=== PATIENT | female | born 1995 | race Caucasian/White ===

== ENCOUNTER 2016-07-19 11:25 | Emergency (ER) | payer OTHER ==
[~2016-07-19 11:25] MED LIST: ACET50TA PO; ADVI200T PO; TYLE167L PO; TYLE325T5 PO; VITAPRTA PO
[2016-07-19] MEDS ORDERED: KETOROLAC 30 MG/ML VIAL (J1885) As Ordered ONE (12:17)
[2016-07-19 12:39] LABS: BASO % 0.1 % (0.0-1.0); EOS # 0.1 K/mm3 (0.0-0.50); LARGE UNSTAINED CELL # 0.1 K/mm3 (0.0-0.4); LARGE UNSTAINED CELL % 1.2 % (0.0-4.0); LYMPH # 0.8 K/mm3 (1.5-6.5); LYMPH % 11.4 % (24.0-44.0); MEAN CORPUSCULAR HEMOGLOBIN 29.6 pg (27.0-33.0); MEAN CORPUSCULAR HGB CONC 32.6 g/dl (32.0-36.5); MEAN CORPUSCULAR VOLUME 90.8 fl (80.0-96.0); MONO # 0.3 K/mm3 (0.0-0.8); MONO % 3.9 % (0.0-5.0); NEUTROPHILS # 5.5 K/mm3 (1.8-7.7); NEUTROPHILS % 82.4 % (36.0-66.0); PLATELET COUNT, AUTOMATED 150 k/mm3 (150-450); RED CELL DISTRIBUTION WIDTH 12.4 % (11.5-14.5); WHITE BLOOD COUNT 6.7 K/mm3 (4.0-10.0)
[2016-07-19 12:42] LABS: ALBUMIN 4.4 GM/DL (3.2-5.2); ALBUMIN/GLOBULIN RATIO 1.33 (1.00-1.93); ALKALINE PHOSPHATASE 135 U/L (45-117); ALT/SGPT 19 U/L (12-78); AMYLASE 56 U/L (25-115); ANION GAP 9 MEQ/L (8-16); AST/SGOT 13 U/L (15-37); BILIRUBIN,DIRECT 0.3 MG/DL (0.0-0.2); BILIRUBIN,TOTAL 1.1 MG/DL (0.2-1.0); BLOOD UREA NITROGEN 15 MG/DL (7-18); CALCIUM LEVEL 8.9 MG/DL (8.5-10.1); CARBON DIOXIDE LEVEL 28 MEQ/L (21-32); CHLORIDE LEVEL 106 MEQ/L (98-107); CREATININE FOR GFR 0.55 MG/DL (0.55-1.02); GLOMERULAR FILTRATION RATE > 60.0 (>60); GLUCOSE, FASTING 65 MG/DL (70-105); POTASSIUM SERUM 3.6 MEQ/L (3.5-5.1); SODIUM LEVEL 143 MEQ/L (136-145); TOTAL PROTEIN 7.7 GM/DL (6.4-8.2)
--- NOTE | 2016-07-19 13:57 | EDDOCDS ---
Nurse's Notes [facility] Name: Seble Pettit Age: 21 yrs Sex: Female : 1995 Arrival Date: 07/19/2016 Time: 11:25 Bed I4 / M4 Private MD: [place] [facility] [place]: Lower abdominal pain, unspecified-RLQ PAIN Presentation: 07/19 11:27 Presenting complaint: Patient states: "I'm having a lot of pain in my right side. It's jc4 been going on since 6 today. I started to get up and I started blacking out and I am nauseous". Adult Sepsis Screening: The patient does not have new or worsening altered mentation. Patient's respiratory rate is less than 22. Systolic blood pressure is greater than 100. Patient has a qSOFA score of 0- Negative Sepsis Screen. Suicide/Homicide risk assessment- the patient denies having any suicidal and/or homicidal ideations and does not present with any other emotional, behavioral or mental health complaints. Status: The patient is a dependent. Transition of care: patient was not received from another setting of care. 11:27 Acuity: FRANCISCO Level 3 jc4 11:27 Method Of Arrival: Walkin/Carried/Asstd jc4 Triage Assessment: 11:29 General: Appears in no apparent distress. Pain: Pain currently is 5 out of 10 on a pain jc4 scale. HIV screening NA for this visit Offered previously. GI: Reports lower abdominal pain, nausea, normal bowel habits, dry heaves. 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 Vitamin Oral tab 1 tab once daily (Last dose: 07/18/2016) 2. Tylenol 325 mg Oral tab 1 tab every 4 hours as needed (Last dose: 07/19/2016 09:00) - PMHx: none; - PSHx: none; - Social history: Smoking status: Patient uses tobacco products, light tobacco smoker. No barriers to communication noted, The patient speaks fluent Turkmen. - Family history: Not pertinent. - : The pt / caregiver states he / she is not on anticoagulants. Home medication list is obtained from the patient. - Exposure Risk Screening:: None identified. Screenin:21 Screening information is obtained from the patient. Fall risk: No risks identified. kr3 Assistance ADL's: requires no assistance with activities of daily living. Abuse/DV Screen: The patient / caregiver reports he/she is: not in a situation that causes fear, pain or injury. Nutritional screening: No deficits noted. Advance Directives: Currently, there is no health care proxy. home support is adequate. Assessment: 12:06 General: Patient unable to void prior to moving to [facility].. js13 12:20 Reassessment: Patient appears in no apparent distress at this time. Pain: Location: kr3 right lower quadrant Pain currently is 5 out of 10 on a pain scale. Neurological: Level of Consciousness is awake, alert. Respiratory: Respiratory effort is even, unlabored, Breath sounds are clear bilaterally. GI: Abdomen is flat, Bowel sounds present X 4 quads. Abd is soft X 4 quads Abd is non tender X 4 quads. Derm: Skin is normal. 13:55 Reassessment: Patient appears in no apparent distress at this time. Pain: Location: kr3 right lower quadrant Pain currently is 2 out of 10 on a pain scale. Respiratory: Respiratory effort is even, unlabored. Derm: Skin is normal. Vital Signs: 11:27 BP 104 / 54; Pulse 75; Resp 18; Temp 97.6; Pulse Ox 100% ; Weight 51.26 kg; Height 5 elp ft. 2 in. (157.48 cm); Pain 5/10; 13:44 BP 97 / 57; Pulse 79; Resp 18; Temp 97.4; Pulse Ox 99% ; Pain 0/10; jam1 13:55 Pain 2/10; kr3 11:27 Body Mass Index 20.67 (51.26 kg, 157.48 cm) [place] Vitals: 11:27 Log In Time: July 19, 2016 at 11:25. el ED Course: 11:26 Patient visited by Gogo Meyer PCA. elp 11:26 MOSHE Pickard is Private Physician. elp 11:26 Patient moved to Waiting elp 11:26 Patient moved to Pre RCE elp 11:28 Patient visited by Gogo Meyre PCA. elp 11:29 Triage Initiated jc4 11:52 Patient moved to Triage 1 dls 11:53 [facility] dt4 11:53 Martha Dela Cruz MD is Attending Physician. dt4 11:53 Patient visited by Jenna Carbone PA-C. dt4 12:03 Patient moved to I / js13 12:09 [facility] Payment Agreement was scanned into [email or web address] and attached to record. dm19 12:19 CRP Sent. kr3 12:19 Amylase Sent. kr3 12:19 Basic Metabolic Profile Sent. kr3 12:19 CBC with Diff Sent. kr3 12:19 Lipase Sent. kr3 12:19 Liver Profile Sent. kr3 12:20 Inserted saline lock: 20 gauge in right antecubital area and blood collected. The kr3 patient tolerated the procedure well. 12:21 The patient / caregiver is instructed regarding the plan of care and ED course. Patient kr3 has correct armband on for positive identification. Placed in gown. Bed in low position. Call light in reach. Side rails up X 1. 12:21 Patient moved to Ultrasound br3 12:45 Patient moved to I / br3 12:59 Patient visited by Brenda Barrios RN. jo3 13:03 Pt greeted and oriented to ED. Patient advised of names of staff involved in care, jam1 location of call [place], wait times and NPO status. Patient has correct armband on for positive identification. Placed in gown. Bed in low position. Call light in reach. Side rails up X 1. Door closed. 13:55 Discontinued lock intact, bleeding controlled, pressure dressing applied, No kr3 redness/swelling at site. No procedures done that require assistance. Administered Medications: 12:22 Drug: NS 0.9% 1000 ml [sodium chloride 0.9 % intravenous solution] Route: IV; Rate: jo3 bolus; Site: right antecubital; 13:55 Follow up: IV Status: Completed infusion; IV Intake: 1000ml kr3 12:22 Drug: ketorolac 15 mg [ketorolac 30 mg/mL (1 mL) injection solution (0.5 mL)] Route: jo3 IVP; Site: right antecubital; 13:55 Follow up: Pain 2/10 Adult kr3 Point of Care Testing: Urine : 12:57 hCG Reading: Negative; Control Reading: Positive; jo3 Ranges: Intake: 13:55 IV: 1000.00ml; Total: 1000.00ml. kr3 Order Results: Lab Order: Urinalysis; SPEC'M 07/19/16 12:47 Test: APPEARANCE, URINE; Value: HAZY; Range: CLEAR; Status: F Test: COLOR, URINE; Value: ERVIN; Range: YELLOW; Status: F Test: PH,URINE; Value: 6.0; Range: 5.0-9.0; Units: UNITS; Status: F Test: SPECIFIC GRAVITY URINE AUTO; Value: 1.031; Range: 1.002-1.035; Status: F Test: PROTEIN, URINE AUTO; Value: 1+; Range: NEGATIVE; Abnormal: Above high normal; Units: mg/dL; Status: F Test: GLUCOSE, URINE (UA) AUTO; Value: NEGATIVE; Range: NEGATIVE; Units: mg/dL; Status: F Test: KETONE, URINE AUTO; Value: TRACE; Range: NEGATIVE; Abnormal: Above high normal; Units: mg/dL; Status: F Test: UROBILINOGEN, URINE AUTO; Value: 0.2; Range: 0.0-2.0; Units: mg/dL; Status: F Test: BILIRUBIN, URINE AUTO; Value: NEGATIVE; Range: NEGATIVE; Status: F Test: NITRITE, URINE AUTO; Value: NEGATIVE; Range: NEGATIVE; Status: F Test: LEUKOCYTE ESTERASE, URINE AUTO; Value: NEGATIVE; Range: NEGATIVE; Status: F Test: BLOOD, URINE BLOOD; Value: NEGATIVE; Range: NEGATIVE; Status: F Test: WBC, URINE AUTO; Value: 1; Range: 0-3; Units: /HPF; Status: F Test: RBC, URINE AUTO; Value: 3; Range: 0-3; Units: /HPF; Status: F Test: BACTERIA, URINE AUTO; Value: NEGATIVE; Range: NEGATIVE; Status: F Test: SQUAMOUS EPITHELIAL CELL UR AU; Value: 2; Range: 0-6; Units: /HPF; Status: F Test: MUCUS, URINE; Value: MODERATE; Range: NEGATIVE; Status: F Test: HYALINE CAST, URINE AUTO; Value: 0; Range: 0-1; Units: /LPF; Status: F Lab Order: Amylase; SPEC'M 07/19/16 12:17 Test: AMYLASE; Value: 56; Range: 25-115; Units: U/L; Status: F Lab Order: Basic Metabolic Profile; SPEC'M 07/19/16 12:17 Test: GLUCOSE, FASTING; Value: 65; Range: 70-105; Abnormal: Below low normal; Units: MG/DL; Status: F Test: BLOOD UREA NITROGEN; Value: 15; Range: 7-18; Units: MG/DL; Status: F Test: CREATININE FOR GFR; Value: 0.55; Range: 0.55-1.02; Units: MG/DL; Status: F Test: GLOMERULAR FILTRATION RATE; Value: > 60.0; Range: >60; Status: F Test: SODIUM LEVEL; Value: 143; Range: 136-145; Units: MEQ/L; Status: F Test: POTASSIUM SERUM; Value: 3.6; Range: 3.5-5.1; Units: MEQ/L; Status: F Test: CHLORIDE LEVEL; Value: 106; Range: 98-107; Units: MEQ/L; Status: F Test: CARBON DIOXIDE LEVEL; Value: 28; Range: 21-32; Units: MEQ/L; Status: F Test: ANION GAP; Value: 9; Range: 8-16; Units: MEQ/L; Status: F Test: CALCIUM LEVEL; Value: 8.9; Range: 8.5-10.1; Units: MG/DL; Status: F Test Note: ; Units are mL/min/1.73 m2 Chronic Kidney Disease Staging per NKF: Stage I & II GFR >=60 Normal to Mildly Decreased Stage III GFR 30-59 Moderately Decreased Stage IV GFR 15-29 Severely Decreased Stage V GFR <15 Very Little GFR Left ESRD GFR <15 on HEALTH ADMINISTRATION TEACHER Lab Order: CBC with Diff; SPEC'M 07/19/16 12:17 Test: WHITE BLOOD COUNT; Value: 6.7; Range: 4.0-10.0; Units: K/mm3; Status: F Test: RED BLOOD COUNT; Value: 4.54; Range: 4.00-5.40; Units: M/mm3; Status: F Test: HEMOGLOBIN; Value: 13.4; Range: 12.0-16.0; Units: g/dl; Status: F Test: HEMATOCRIT; Value: 41.2; Range: 36.0-47.0; Units: %; Status: F Test: MEAN CORPUSCULAR VOLUME; Value: 90.8; Range: 80.0-96.0; Units: fl; Status: F Test: MEAN CORPUSCULAR HEMOGLOBIN; Value: 29.6; Range: 27.0-33.0; Units: pg; Status: F Test: MEAN CORPUSCULAR HGB CONC; Value: 32.6; Range: 32.0-36.5; Units: g/dl; Status: F Test: RED CELL DISTRIBUTION WIDTH; Value: 12.4; Range: 11.5-14.5; Units: %; Status: F Test: PLATELET COUNT, AUTOMATED; Value: 150; Range: 150-450; Units: k/mm3; Status: F Test: NEUTROPHILS %; Value: 82.4; Range: 36.0-66.0; Abnormal: Above high normal; Units: %; Status: F Test: LYMPH %; Value: 11.4; Range: 24.0-44.0; Abnormal: Below low normal; Units: %; Status: F Test: MONO %; Value: 3.9; Range: 0.0-5.0; Units: %; Status: F Test: EOS %; Value: 1.0; Range: 0.0-3.0; Units: %; Status: F Test: BASO %; Value: 0.1; Range: 0.0-1.0; Units: %; Status: F Test: LARGE UNSTAINED CELL %; Value: 1.2; Range: 0.0-4.0; Units: %; Status: F Test: NEUTROPHILS #; Value: 5.5; Range: 1.8-7.7; Units: K/mm3; Status: F Test: LYMPH #; Value: 0.8; Range: 1.5-6.5; Abnormal: Below low normal; Units: K/mm3; Status: F Test: MONO #; Value: 0.3; Range: 0.0-0.8; Units: K/mm3; Status: F Test: EOS #; Value: 0.1; Range: 0.0-0.50; Units: K/mm3; Status: F Test: BASO #; Value: 0.0; Range: 0.0-0.2; Units: K/mm3; Status: F Test: LARGE UNSTAINED CELL #; Value: 0.1; Range: 0.0-0.4; Units: K/mm3; Status: F Lab Order: Lipase; SPEC'M 07/19/16 12:17 Test: LIPASE; Value: 71; Range: 73-393; Abnormal: Below low normal; Units: U/L; Status: F Lab Order: Liver Profile; SPEC'M 07/19/16 12:17 Test: AST/SGOT; Value: 13; Range: 15-37; Abnormal: Below low normal; Units: U/L; Status: F Test: ALT/SGPT; Value: 19; Range: 12-78; Units: U/L; Status: F Test: ALKALINE PHOSPHATASE; Value: 135; Range: 45-117; Abnormal: Above high normal; Units: U/L; Status: F Test: BILIRUBIN,TOTAL; Value: 1.1; Range: 0.2-1.0; Abnormal: Above high normal; Units: MG/DL; Status: F Test: BILIRUBIN,DIRECT; Value: 0.3; Range: 0.0-0.2; Abnormal: Above high normal; Units: MG/DL; Status: F Test: TOTAL PROTEIN; Value: 7.7; Range: 6.4-8.2; Units: GM/DL; Status: F Test: ALBUMIN; Value: 4.4; Range: 3.2-5.2; Units: GM/DL; Status: F Test: ALBUMIN/GLOBULIN RATIO; Value: 1.33; Range: 1.00-1.93; Status: F Lab Order: CRP; SPEC'M 07/19/16 12:17 Test: C REACTIVE PROTEIN QUANTITATIV; Value: < 0.30; Range: 0.00-0.30; Units: MG/DL; Status: F Outcome: 13:42 Discharge ordered by Provider. dt4 13:55 Discharge Assessment: patient administered narcotics - no. The following High Risk kr3 Discharge criteria are identified: None. Discharged to home ambulatory. Condition: stable. Discharge instructions given to patient, Instructed on discharge instructions, follow up and referral plans. Demonstrated understanding of instructions, Pt was receptive of discharge instructions/ teaching. CT Study completed. Ultrasound Study completed. Property sent home with patient. 13:56 Patient left the ED. kr3 Signatures: Saba Dumont RN RN Sarah Camacho, ROSALIE COMMUNICATIONS EDITOR Farzana Faulkner RN RN kr3 Brenda Barrios,RN RN jo3 Deann Lynn3 Brenda Alexandra, RN RN jc4 Brenda Mejia,RN RN js13 Gogo Meyer, Jenna Lackey, PA-C PA-C dt4 Jenna Guillermo dm19 MTDD
--- NOTE | 2016-07-19 13:57 | EDDOCDS ---
Physician Documentation [facility] Name: Seble Pettit Age: 21 yrs Sex: Female : 1995 Arrival Date: 07/19/2016 Time: 11:25 Bed I4 / M4 Private MD: Melly [facility] [place] Disposition: 07/19/16 13:42 Discharged to Home/Self Care. Impression: Lower abdominal pain, unspecified - RLQ PAIN. - Condition is Stable. - Discharge Instructions: Abdominal Pain, Women. - Medication Reconciliation, Local Pharmacy Hours form. - Follow up: Emergency Department; When: As needed; Reason: Worsening of conditions. Follow up: Private Physician; When: 2 - 3 days; Reason: Wound/Symptom Recheck, Recheck today's complaints, Continuance of care. - Problem is new. - Symptoms are unchanged. Historical: - Allergies: no known allergies; - Home Meds: 1. Vitamin Oral tab 1 tab once daily (Last dose: 07/18/2016) 2. Tylenol 325 mg Oral tab 1 tab every 4 hours as needed (Last dose: 07/19/2016 09:00) - PMHx: none; - PSHx: none; - Social history: Smoking status: Patient uses tobacco products, light tobacco smoker. No barriers to communication noted, The patient speaks fluent Hungarian. - Family history: Not pertinent. - : The pt / caregiver states he / she is not on anticoagulants. Home medication list is obtained from the patient. - Exposure Risk Screening:: None identified. 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 2 in. (157.48 cm); Pain 5/10; 13:44 BP 97 / 57; Pulse 79; Resp 18; Temp 97.4; Pulse Ox 99% ; Pain 0/10; jam1 13:55 Pain 2/10; kr3 11:27 Body Mass Index 20.67 (51.26 kg, 157.48 cm) elp MDM: 11:52 UCG by Nursing ordered. dt4 11:54 Urinalysis Ordered. EDMS 11:54 Urine Culture Ordered. EDMS 12:08 NS 0.9% 1000 ml IV at bolus once ordered. dt4 12:08 IV Saline Lock ordered. dt4 12:08 Undress patient appropriately for examination ordered. dt4 12:08 ketorolac 15 mg IVP once ordered. dt4 12:09 [facility] Payment Agreement was scanned into [email or web address] and attached to record. dm19 12:09 -US Pelvic Non-Ob Complete Ordered. EDMS 12:09 Financial registration complete. dm19 12:10 Amylase Ordered. EDMS 12:10 Basic Metabolic Profile Ordered. EDMS 12:10 CBC with Diff Ordered. EDMS 12:10 Lipase Ordered. EDMS 12:10 Liver Profile Ordered. EDMS 12:10 CRP Ordered. EDMS 12:10 CT ABD & PELVIS: No Contrast: PT BREAST-FEEDING Ordered. EDMS 12:10 NOTHING BY MOUTH+DIET ordered. EDMS 12:10 DUPLEX SCAN LIMITED (DOPPLER)+US Ordered. EDMS 12:46 Transvaginal NON- US Ordered. EDMS 13:03 3D RECONS Ordered. EDMS Point of Care Testing: Urine : 12:57 hCG Reading: Negative; Control Reading: Positive; jo3 Ranges: Administered Medications: 12:22 Drug: NS 0.9% 1000 ml [sodium chloride 0.9 % intravenous solution] Route: IV; Rate: jo3 bolus; Site: right antecubital; 13:55 Follow up: IV Status: Completed infusion; IV Intake: 1000ml kr3 12:22 Drug: ketorolac 15 mg [ketorolac 30 mg/mL (1 mL) injection solution (0.5 mL)] Route: jo3 IVP; Site: right antecubital; 13:55 Follow up: Pain 2/10 Adult kr3 Signatures: Dispatcher [employer] EDMS Farzana Oconnor RN RN kr3 Brenda Alexandra RN RN jc4 Tschudi, Diane, PA-C PA-C dt4 Jenna Guillermo dm19 Brenda Barrios RN jo3 The chart was reviewed and I authenticate all verbal orders and agree with the evaluation and treatment provided.Attachments: 12:09 [facility] Payment Agreement dm19 MTDD
--- NOTE | 2016-07-19 15:53 | REP ---
Pelvic sonography: History: Right lower quadrant pain. Question appendicitis versus ovarian torsion. Findings: Transabdominal and transvaginal scanning are performed. An anteverted normal appearing uterus is seen measuring 7.2 x 3.2 x 4.9 cm. Endometrial echo is 0.3 cm thick. An IUD is seen in good position in the endometrium. No focal uterine mass is seen. The ovaries are normal bilaterally. Right ovary measures 3.5 x 2.9 x 1.9 cm. Left ovarian dimensions are 2.9 x 1.9 x 1.8 cm. Ovarian Doppler resistive indices are normal bilaterally at 0.52 on the right and 0.60 on the left. Visualized bladder galarza are smooth. Impression: Normal pelvic sonography. IUD in place. Normal ovaries with normal Doppler flow. Signed by Evert Smith MD 07/19/2016 04:00 P
--- NOTE | 2016-07-19 16:28 | REP ---
CT study of the abdomen and pelvis without IV or oral contrast: History: Appendicitis. CT findings: Preliminary digital pilates instructor radiograph demonstrates a normal bowel gas pattern. An IUD is seen in place in the central pelvis. Axial CT images show that the lung bases are clear. The liver and spleen are normal in size homogeneous in texture on noncontrast study. No adrenal lesion is seen. Kidneys are morphologically intact. No intrarenal calculus or hydronephrosis is seen. No pancreatic abnormality is seen. Gallbladder is unremarkable. A normal appendix is seen posterior to the cecum in the right mid pelvis. There is no CT evidence of appendicitis. There is moderate stool throughout the colon. There is no evidence of an intra-abdominal mass, free air or free fluid. No abdominal wall defect is seen. No bony destructive lesion is observed. Impression: IUD noted in the uterus. Normal appendix seen. Moderate colonic stool. Otherwise negative CT study abdomen and pelvis without contrast. Signed by Evert Smith MD 07/19/2016 04:39 P
--- NOTE | 2016-07-22 11:08 | EDDOCDS ---
Physician Documentation [facility] Name: Seble Pettit Age: 21 yrs Sex: Female : 1995 Arrival Date: 07/19/2016 Time: 11:25 Bed I4 / M4 Private MD: Melly [facility] [place]position: 07/19/16 13:42 Discharged to Home/Self Care. Impression: Lower abdominal pain, unspecified - RLQ PAIN. - Condition is Stable. - Discharge Instructions: Abdominal Pain, Women. - Medication Reconciliation, Local Pharmacy Hours form. - Follow up: Emergency Department; When: As needed; Reason: Worsening of conditions. Follow up: Private Physician; When: 2 - 3 days; Reason: Wound/Symptom Recheck, Recheck today's complaints, Continuance of care. - Problem is new. - Symptoms are unchanged. Historical: - Allergies: no known allergies; - Home Meds: 1. Vitamin Oral tab 1 tab once daily (Last dose: 07/18/2016) 2. Tylenol 325 mg Oral tab 1 tab every 4 hours as needed (Last dose: 07/19/2016 09:00) - PMHx: none; - PSHx: none; - Social history: Smoking status: Patient uses tobacco products, light tobacco smoker. No barriers to communication noted, The patient speaks fluent Japanese. - Family history: Not pertinent. - : The pt / caregiver states he / she is not on anticoagulants. Home medication list is obtained from the patient. - Exposure Risk Screening:: None identified. 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 2 in. (157.48 cm); Pain 5/10; 13:44 BP 97 / 57; Pulse 79; Resp 18; Temp 97.4; Pulse Ox 99% ; Pain 0/10; jam1 13:55 Pain 2/10; kr3 11:27 Body Mass Index 20.67 (51.26 kg, 157.48 cm) elp MDM: 11:52 UCG by Nursing ordered. dt4 11:54 Urinalysis Ordered. EDMS 11:54 Urine Culture Ordered. EDMS 12:08 NS 0.9% 1000 ml IV at bolus once ordered. dt4 12:08 IV Saline Lock ordered. dt4 12:08 Undress patient appropriately for examination ordered. dt4 12:08 ketorolac 15 mg IVP once ordered. dt4 12:09 [facility] Payment Agreement was scanned into [employer] and attached to record. dm19 12:09 -US Pelvic Non-Ob Complete Ordered. EDMS 12:09 Financial registration complete. dm19 12:10 Amylase Ordered. EDMS 12:10 Basic Metabolic Profile Ordered. EDMS 12:10 CBC with Diff Ordered. EDMS 12:10 Lipase Ordered. EDMS 12:10 Liver Profile Ordered. EDMS 12:10 CRP Ordered. EDMS 12:10 CT ABD & PELVIS: No Contrast: PT BREAST-FEEDING Ordered. EDMS 12:10 NOTHING BY MOUTH+DIET ordered. EDMS 12:10 DUPLEX SCAN LIMITED (DOPPLER)+US Ordered. EDMS 12:46 Transvaginal NON- US Ordered. EDMS 13:03 3D RECONS Ordered. EDMS 15:39 T-Sheet-- Draft Copy was scanned into [employer] and attached to record. klr 01 09:28 Radiology Report was scanned into [employer] and attached to record. Point of Care Testing: Urine : 07/19 12:57 hCG Reading: Negative; Control Reading: Positive; jo3 Ranges: Administered Medications: 12:22 Drug: NS 0.9% 1000 ml [sodium chloride 0.9 % intravenous solution] Route: IV; Rate: jo3 bolus; Site: right antecubital; 13:55 Follow up: IV Status: Completed infusion; IV Intake: 1000ml kr3 12:22 Drug: ketorolac 15 mg [ketorolac 30 mg/mL (1 mL) injection solution (0.5 mL)] Route: jo3 IVP; Site: right antecubital; 13:55 Follow up: Pain 08/22 Adult kr3 Signatures: Dispatcher [employer] EDMS Nicki Sheffield, Farzana Bah RN RN kr3 Brenda Alexandra RN RN [email or web address] Jenna Carbone, ISABEL PA-C dt4 Maureen Mascorro klr Jenna Guillermo dm19 [place], Brenda RN jo3 The chart was reviewed and I authenticate all verbal orders and agree with the evaluation and treatment provided.Attachments: 12:09 [facility] Payment Agreement dm19 15:39 T-Sheet-- Draft Copy klr Chart Complete MTDD
--- NOTE | 2016-07-22 11:08 | EDDOCDS ---
Nurse's Notes [facility] Name: Seble Pettit Age: 21 yrs Sex: Female : 1995 Arrival Date: 07/19/2016 Time: 11:25 Bed I4 / M4 Private MD: Melly [facility] [place] Diagnosis: Lower abdominal pain, unspecified-RLQ PAIN Presentation: 07/19 11:27 Presenting complaint: Patient states: "I'm having a lot of pain in my right side. It's jc4 been going on since 6 today. I started to get up and I started blacking out and I am nauseous". Adult Sepsis Screening: The patient does not have new or worsening altered mentation. Patient's respiratory rate is less than 22. Systolic blood pressure is greater than 100. Patient has a qSOFA score of 0- Negative Sepsis Screen. Suicide/Homicide risk assessment- the patient denies having any suicidal and/or homicidal ideations and does not present with any other emotional, behavioral or mental health complaints. Status: The patient is a dependent. Transition of care: patient was not received from another setting of care. 11:27 Acuity: FRANCISCO Level 3 jc4 11:27 Method Of Arrival: Walkin/Carried/Asstd jc4 Triage Assessment: 11:29 General: Appears in no apparent distress. Pain: Pain currently is 5 out of 10 on a pain jc4 scale. HIV screening NA for this visit Offered previously. GI: Reports lower abdominal pain, nausea, normal bowel habits, dry heaves. BLASTER HELPER: 11:29 LMP N/A - Mirena jc4 Historical: - Allergies: no known allergies; - Home Meds: 1. Vitamin Oral tab 1 tab once daily (Last dose: 07/18/2016) 2. Tylenol 325 mg Oral tab 1 tab every 4 hours as needed (Last dose: 07/19/2016 09:00) - PMHx: none; - PSHx: none; - Social history: Smoking status: Patient uses tobacco products, light tobacco smoker. No barriers to communication noted, The patient speaks fluent Sami. - Family history: Not pertinent. - : The pt / caregiver states he / she is not on anticoagulants. Home medication list is obtained from the patient. - Exposure Risk Screening:: None identified. Screenin:21 Screening information is obtained from the patient. Fall risk: No risks identified. kr3 Assistance ADL's: requires no assistance with activities of daily living. Abuse/DV Screen: The patient / caregiver reports he/she is: not in a situation that causes fear, pain or injury. Nutritional screening: No deficits noted. Advance Directives: Currently, there is no health care proxy. home support is adequate. Assessment: 12:06 General: Patient unable to void prior to moving to [facility].. js13 12:20 Reassessment: Patient appears in no apparent distress at this time. Pain: Location: kr3 right lower quadrant Pain currently is 5 out of 10 on a pain scale. Neurological: Level of Consciousness is awake, alert. Respiratory: Respiratory effort is even, unlabored, Breath sounds are clear bilaterally. GI: Abdomen is flat, Bowel sounds present X 4 quads. Abd is soft X 4 quads Abd is non tender X 4 quads. Derm: Skin is normal. 13:55 Reassessment: Patient appears in no apparent distress at this time. Pain: Location: kr3 right lower quadrant Pain currently is 2 out of 10 on a pain scale. Respiratory: Respiratory effort is even, unlabored. Derm: Skin is normal. Vital Signs: 11:27 BP 104 / 54; Pulse 75; Resp 18; Temp 97.6; Pulse Ox 100% ; Weight 51.26 kg; Height 5 elp ft. 2 in. (157.48 cm); Pain 5/10; 13:44 BP 97 / 57; Pulse 79; Resp 18; Temp 97.4; Pulse Ox 99% ; Pain 0/10; jam1 13:55 Pain 2/10; kr3 11:27 Body Mass Index 20.67 (51.26 kg, 157.48 cm) [facility] Vitals: 11:27 Log In Time: July 19, 2016 at 11:25. el ED Course: 11:26 Patient visited by Gogo Meyer PCA. elp 11:26 MOSHE Pickard is Private Physician. elp 11:26 Patient moved to Waiting elp 11:26 Patient moved to Pre RCE elp 11:28 Patient visited by Gogo Meyer PCA. elp 11:29 Triage Initiated jc4 11:52 Patient moved to Triage 1 dls 11:53 [facility] dt4 11:53 Martha Dela Cruz MD is Attending Physician. dt4 11:53 Patient visited by Jenna Carbone PA-C. dt4 12:03 Patient moved to I / js13 12:09 [facility] Payment Agreement was scanned into Kleer and attached to record. dm19 12:19 CRP Sent. kr3 12:19 Amylase Sent. kr3 12:19 Basic Metabolic Profile Sent. kr3 12:19 CBC with Diff Sent. kr3 12:19 Lipase Sent. kr3 12:19 Liver Profile Sent. kr3 12:20 Inserted saline lock: 20 gauge in right antecubital area and blood collected. The kr3 patient tolerated the procedure well. 12:21 The patient / caregiver is instructed regarding the plan of care and ED course. Patient krMartín has correct armband on for positive identification. Placed in gown. Bed in low position. Call light in reach. Side rails up X 1. 12:21 Patient moved to Ultrasound br3 12:45 Patient moved to I4 / br3 12:59 Patient visited by Brenda Barrios RN. jo3 13:03 Pt greeted and oriented to ED. Patient advised of names of staff involved in care, jam1 location of call [place], wait times and NPO status. Patient has correct armband on for positive identification. Placed in gown. Bed in low position. Call light in reach. Side rails up X 1. Door closed. 13:55 Discontinued lock intact, bleeding controlled, pressure dressing applied, No kr3 redness/swelling at site. No procedures done that require assistance. 15:39 T-Sheet-- Draft Copy was scanned into Kleer and attached to record. klr 16:28 -US Pelvic Non-Ob Complete Returned. EDMS 16:29 DUPLEX SCAN LIMITED (DOPPLER)+US Returned. EDMS 16:29 Transvaginal NON- US Returned. EDMS 16:29 CT ABD & PELVIS: No Contrast: PT BREAST-FEEDING Returned. EDMS 07/20 09:28 Radiology Report was scanned into Kleer and attached to record. gb Administered Medications: 07/19 12:22 Drug: NS 0.9% 1000 ml [sodium chloride 0.9 % intravenous solution] Route: IV; Rate: jo3 bolus; Site: right antecubital; 13:55 Follow up: IV Status: Completed infusion; IV Intake: 1000ml kr3 12:22 Drug: ketorolac 15 mg [ketorolac 30 mg/mL (1 mL) injection solution (0.5 mL)] Route: jo3 IVP; Site: right antecubital; 13:55 Follow up: Pain 2/10 Adult kr3 Point of Care Testing: Urine : 12:57 hCG Reading: Negative; Control Reading: Positive; jo3 Ranges: Intake: 13:55 IV: 1000.00ml; Total: 1000.00ml. kr3 Order Results: Lab Order: Urinalysis; SPEC'M 07/19/16 12:47 Test: APPEARANCE, URINE; Value: HAZY; Range: CLEAR; Status: F Test: COLOR, URINE; Value: ERVIN; Range: YELLOW; Status: F Test: PH,URINE; Value: 6.0; Range: 5.0-9.0; Units: UNITS; Status: F Test: SPECIFIC GRAVITY URINE AUTO; Value: 1.031; Range: 1.002-1.035; Status: F Test: PROTEIN, URINE AUTO; Value: 1+; Range: NEGATIVE; Abnormal: Above high normal; Units: mg/dL; Status: F Test: GLUCOSE, URINE (UA) AUTO; Value: NEGATIVE; Range: NEGATIVE; Units: mg/dL; Status: F Test: KETONE, URINE AUTO; Value: TRACE; Range: NEGATIVE; Abnormal: Above high normal; Units: mg/dL; Status: F Test: UROBILINOGEN, URINE AUTO; Value: 0.2; Range: 0.0-2.0; Units: mg/dL; Status: F Test: BILIRUBIN, URINE AUTO; Value: NEGATIVE; Range: NEGATIVE; Status: F Test: NITRITE, URINE AUTO; Value: NEGATIVE; Range: NEGATIVE; Status: F Test: LEUKOCYTE ESTERASE, URINE AUTO; Value: NEGATIVE; Range: NEGATIVE; Status: F Test: BLOOD, URINE BLOOD; Value: NEGATIVE; Range: NEGATIVE; Status: F Test: WBC, URINE AUTO; Value: 1; Range: 0-3; Units: /HPF; Status: F Test: RBC, URINE AUTO; Value: 3; Range: 0-3; Units: /HPF; Status: F Test: BACTERIA, URINE AUTO; Value: NEGATIVE; Range: NEGATIVE; Status: F Test: SQUAMOUS EPITHELIAL CELL UR AU; Value: 2; Range: 0-6; Units: /HPF; Status: F Test: MUCUS, URINE; Value: MODERATE; Range: NEGATIVE; Status: F Test: HYALINE CAST, URINE AUTO; Value: 0; Range: 0-1; Units: /LPF; Status: F Lab Order: Urine Culture; SPEC'M 07/19/16 12:47 Test: URINE CULTURE; Value: URINE CULTURE RESULT NO GROWTH CLINICAL SIGNIFICANCE 1 ORGANISM; Status: F Lab Order: Amylase; SPEC'07/19/16 12:17 Test: AMYLASE; Value: 56; Range: 25-115; Units: U/L; Status: F Lab Order: Basic Metabolic Profile; SPEC07/19/16 12:17 Test: GLUCOSE, FASTING; Value: 65; Range: 70-105; Abnormal: Below low normal; Units: MG/DL; Status: F Test: BLOOD UREA NITROGEN; Value: 15; Range: 7-18; Units: MG/DL; Status: F Test: CREATININE FOR GFR; Value: 0.55; Range: 0.55-1.02; Units: MG/DL; Status: F Test: GLOMERULAR FILTRATION RATE; Value: > 60.0; Range: >60; Status: F Test: SODIUM LEVEL; Value: 143; Range: 136-145; Units: MEQ/L; Status: F Test: POTASSIUM SERUM; Value: 3.6; Range: 3.5-5.1; Units: MEQ/L; Status: F Test: CHLORIDE LEVEL; Value: 106; Range: 98-107; Units: MEQ/L; Status: F Test: CARBON DIOXIDE LEVEL; Value: 28; Range: 21-32; Units: MEQ/L; Status: F Test: ANION GAP; Value: 9; Range: 8-16; Units: MEQ/L; Status: F Test: CALCIUM LEVEL; Value: 8.9; Range: 8.5-10.1; Units: MG/DL; Status: F Test Note: ; Units are mL/min/1.73 m2 Chronic Kidney Disease Staging per NKF: Stage I & II GFR >=60 Normal to Mildly Decreased Stage III GFR 30-59 Moderately Decreased Stage IV GFR 15-29 Severely Decreased Stage V GFR <15 Very Little GFR Left ESRD GFR <15 on MASK DESIGNER Lab Order: CBC with Diff; SPEC'M 07/19/16 12:17 Test: WHITE BLOOD COUNT; Value: 6.7; Range: 4.0-10.0; Units: K/mm3; Status: F Test: RED BLOOD COUNT; Value: 4.54; Range: 4.00-5.40; Units: M/mm3; Status: F Test: HEMOGLOBIN; Value: 13.4; Range: 12.0-16.0; Units: g/dl; Status: F Test: HEMATOCRIT; Value: 41.2; Range: 36.0-47.0; Units: %; Status: F Test: MEAN CORPUSCULAR VOLUME; Value: 90.8; Range: 80.0-96.0; Units: fl; Status: F Test: MEAN CORPUSCULAR HEMOGLOBIN; Value: 29.6; Range: 27.0-33.0; Units: pg; Status: F Test: MEAN CORPUSCULAR HGB CONC; Value: 32.6; Range: 32.0-36.5; Units: g/dl; Status: F Test: RED CELL DISTRIBUTION WIDTH; Value: 12.4; Range: 11.5-14.5; Units: %; Status: F Test: PLATELET COUNT, AUTOMATED; Value: 150; Range: 150-450; Units: k/mm3; Status: F Test: NEUTROPHILS %; Value: 82.4; Range: 36.0-66.0; Abnormal: Above high normal; Units: %; Status: F Test: LYMPH %; Value: 11.4; Range: 24.0-44.0; Abnormal: Below low normal; Units: %; Status: F Test: MONO %; Value: 3.9; Range: 0.0-5.0; Units: %; Status: F Test: EOS %; Value: 1.0; Range: 0.0-3.0; Units: %; Status: F Test: BASO %; Value: 0.1; Range: 0.0-1.0; Units: %; Status: F Test: LARGE UNSTAINED CELL %; Value: 1.2; Range: 0.0-4.0; Units: %; Status: F Test: NEUTROPHILS #; Value: 5.5; Range: 1.8-7.7; Units: K/mm3; Status: F Test: LYMPH #; Value: 0.8; Range: 1.5-6.5; Abnormal: Below low normal; Units: K/mm3; Status: F Test: MONO #; Value: 0.3; Range: 0.0-0.8; Units: K/mm3; Status: F Test: EOS #; Value: 0.1; Range: 0.0-0.50; Units: K/mm3; Status: F Test: BASO #; Value: 0.0; Range: 0.0-0.2; Units: K/mm3; Status: F Test: LARGE UNSTAINED CELL #; Value: 0.1; Range: 0.0-0.4; Units: K/mm3; Status: F Lab Order: Lipase; [facility]' 07/19/16 12: Test: LIPASE; Value: 71; Range: 73-393; Abnormal: Below low normal; Units: U/L; Status: F Lab Order: Liver Profile; [facility] 07/19/16 12:17 Test: AST/SGOT; Value: 13; Range: 15-37; Abnormal: Below low normal; Units: U/L; Status: F Test: ALT/SGPT; Value: 19; Range: 12-78; Units: U/L; Status: F Test: ALKALINE PHOSPHATASE; Value: 135; Range: 45-117; Abnormal: Above high normal; Units: U/L; Status: F Test: BILIRUBIN,TOTAL; Value: 1.1; Range: 0.2-1.0; Abnormal: Above high normal; Units: MG/DL; Status: F Test: BILIRUBIN,DIRECT; Value: 0.3; Range: 0.0-0.2; Abnormal: Above high normal; Units: MG/DL; Status: F Test: TOTAL PROTEIN; Value: 7.7; Range: 6.4-8.2; Units: GM/DL; Status: F Test: ALBUMIN; Value: 4.4; Range: 3.2-5.2; Units: GM/DL; Status: F Test: ALBUMIN/GLOBULIN RATIO; Value: 1.33; Range: 1.00-1.93; Status: F Lab Order: CRP; SPEC' 07/19/16 12:17 Test: C REACTIVE PROTEIN QUANTITATIV; Value: < 0.30; Range: 0.00-0.30; Units: MG/DL; Status: F Radiology Order: CT ABD & PELVIS: No Contrast: PT BREAST-FEEDING Test: CT ABD & PELVIS: No Contrast: PT BREAST-FEEDING REASON FOR EXAMINATION: Appendicitis; CT study of the abdomen and pelvis without IV or oral contrast:; ; History: Appendicitis.; ; CT findings: Preliminary digital prawn trawler hand radiograph demonstrates a normal bowel; gas pattern. An IUD is seen in place in the central pelvis.; ; Axial CT images show that the lung bases are clear. The liver and spleen are; normal in size homogeneous in texture on noncontrast study. No adrenal lesion is; seen. Kidneys are morphologically intact. No intrarenal calculus or; hydronephrosis is seen. No pancreatic abnormality is seen. Gallbladder is; unremarkable.; ; A normal appendix is seen posterior to the cecum in the right mid pelvis. There; is no CT evidence of appendicitis. There is moderate stool throughout the colon.; There is no evidence of an intra-abdominal mass, free air or free fluid. No; abdominal wall defect is seen. No bony destructive lesion is observed.; ; Impression:; ; IUD noted in the uterus. Normal appendix seen. Moderate colonic stool.; Otherwise negative CT study abdomen and pelvis without contrast.; ; ; Signed by; Evert Smith MD 07/19/2016 04:39 P; Radiology Order: -US Pelvic Non-Ob Complete Test: -US Pelvic Non-Ob Complete REASON FOR EXAMINATION: RLQ PAIN, APPE VS OV CYST/TORSION; Pelvic sonography:; ; History: Right lower quadrant pain. Question appendicitis versus ovarian; torsion.; ; Findings: Transabdominal and transvaginal scanning are performed. An anteverted; normal appearing uterus is seen measuring 7.2 x 3.2 x 4.9 cm. Endometrial echo; is 0.3 cm thick. An IUD is seen in good position in the endometrium. No focal; uterine mass is seen. The ovaries are normal bilaterally. Right ovary measures; 3.5 x 2.9 x 1.9 cm. Left ovarian dimensions are 2.9 x 1.9 x 1.8 cm. Ovarian; Doppler resistive indices are normal bilaterally at 0.52 on the right and 0.60 on; the left. Visualized bladder galarza are smooth.; ; Impression:; ; Normal pelvic sonography. IUD in place. Normal ovaries with normal Doppler; flow.; ; ; Signed by; Evert Smith MD 07/19/2016 04:00 P; Radiology Order: DUPLEX SCAN LIMITED (DOPPLER)+US Test: DUPLEX SCAN LIMITED (DOPPLER)+US REASON FOR EXAMINATION: RLQ PAIN, APPE VS CYST/TORSION; Pelvic sonography:; ; History: Right lower quadrant pain. Question appendicitis versus ovarian; torsion.; ; Findings: Transabdominal and transvaginal scanning are performed. An anteverted; normal appearing uterus is seen measuring 7.2 x 3.2 x 4.9 cm. Endometrial echo; is 0.3 cm thick. An IUD is seen in good position in the endometrium. No focal; uterine mass is seen. The ovaries are normal bilaterally. Right ovary measures; 3.5 x 2.9 x 1.9 cm. Left ovarian dimensions are 2.9 x 1.9 x 1.8 cm. Ovarian; Doppler resistive indices are normal bilaterally at 0.52 on the right and 0.60 on; the left. Visualized bladder galarza are smooth.; ; Impression:; ; Normal pelvic sonography. IUD in place. Normal ovaries with normal Doppler; flow.; ; ; Signed by; Evert Smith MD 07/19/2016 04:00 P; Radiology Order: Transvaginal NON- US Test: Transvaginal NON- US REASON FOR EXAMINATION: EVAL OVARIES AND IUD; Pelvic sonography:; ; History: Right lower quadrant pain. Question appendicitis versus ovarian; torsion.; ; Findings: Transabdominal and transvaginal scanning are performed. An anteverted; normal appearing uterus is seen measuring 7.2 x 3.2 x 4.9 cm. Endometrial echo; is 0.3 cm thick. An IUD is seen in good position in the endometrium. No focal; uterine mass is seen. The ovaries are normal bilaterally. Right ovary measures; 3.5 x 2.9 x 1.9 cm. Left ovarian dimensions are 2.9 x 1.9 x 1.8 cm. Ovarian; Doppler resistive indices are normal bilaterally at 0.52 on the right and 0.60 on; the left. Visualized bladder galarza are smooth.; ; Impression:; ; Normal pelvic sonography. IUD in place. Normal ovaries with normal Doppler; flow.; ; ; Signed by; Evert Smith MD 07/19/2016 04:00 P; Outcome: 13:42 Discharge ordered by Provider. dt4 13:55 Discharge Assessment: patient administered narcotics - no. The following High Risk kr3 Discharge criteria are identified: None. Discharged to home ambulatory. Condition: stable. Discharge instructions given to patient, Instructed on discharge instructions, follow up and referral plans. Demonstrated understanding of instructions, Pt was receptive of discharge instructions/ teaching. CT Study completed. Ultrasound Study completed. Property sent home with patient. 13:56 Patient left the ED. kr3 Signatures: Dispatcher [employer] EDMS Saba Dumont, RN RN dls Sarah Godinez, FLAT KNITTER HELPER FLAT KNITTER HELPER jam1 Nicki Sheffield, Reg Reg gb Farzana Oconnor,RN RN kr3 Brenda Barrios,RN RN [email or web address] Deann Lynn br3 Brenda Alexandra, RN RN jc4 Brenda Mejia,RN RN js13 Gogo Meyer, FLAT KNITTER HELPER FLAT KNITTER HELPER Jenna Randle, ISABEL HALL dt4 Maureen Mascorro Diane dm19 Chart Complete CHRIS
--- NOTE | 2016-07-22 11:08 | EDDOCDS ---
Physician Documentation [facility] Name: Seble Pettit Age: 21 yrs Sex: Female : 1995 Arrival Date: 07/19/2016 Time: 11:25 Bed I4 / M4 Private MD: Melly [facility] [place] Disposition: 07/19/16 13:42 Discharged to Home/Self Care. Impression: Lower abdominal pain, unspecified - RLQ PAIN. - Condition is Stable. - Discharge Instructions: Abdominal Pain, Women. - Medication Reconciliation, Local Pharmacy Hours form. - Follow up: Emergency Department; When: As needed; Reason: Worsening of conditions. Follow up: Private Physician; When: 2 - 3 days; Reason: Wound/Symptom Recheck, Recheck today's complaints, Continuance of care. - Problem is new. - Symptoms are unchanged. Historical: - Allergies: no known allergies; - Home Meds: 1. Vitamin Oral tab 1 tab once daily (Last dose: 07/18/2016) 2. Tylenol 325 mg Oral tab 1 tab every 4 hours as needed (Last dose: 07/19/2016 09:00) - PMHx: none; - PSHx: none; - Social history: Smoking status: Patient uses tobacco products, light tobacco smoker. No barriers to communication noted, The patient speaks fluent Slovenian. - Family history: Not pertinent. - : The pt / caregiver states he / she is not on anticoagulants. Home medication list is obtained from the patient. - Exposure Risk Screening:: None identified. DICE SPOTTER: 07/19 11:29 LMP N/A - Isabel jc4 Vital Signs: 11:27 BP 104 / 54; Pulse 75; Resp 18; Temp 97.6; Pulse Ox 100% ; Weight 51.26 kg / 113.01 elp lbs; Height 5 ft. 2 in. (157.48 cm); Pain 5/10; 13:44 BP 97 / 57; Pulse 79; Resp 18; Temp 97.4; Pulse Ox 99% ; Pain 0/10; jam1 13:55 Pain 2/10; kr3 11:27 Body Mass Index 20.67 (51.26 kg, 157.48 cm) elp MDM: 11:52 UCG by Nursing ordered. dt4 11:54 Urinalysis Ordered. EDMS 11:54 Urine Culture Ordered. EDMS 12:08 NS 0.9% 1000 ml IV at bolus once ordered. dt4 12:08 IV Saline Lock ordered. dt4 12:08 Undress patient appropriately for examination ordered. dt4 12:08 ketorolac 15 mg IVP once ordered. dt4 12:09 [facility] Payment Agreement was scanned into [employer]cept[employer] and attached to record. dm19 12:09 -US Pelvic Non-Ob Complete Ordered. EDMS 12:09 Financial registration complete. dm19 12:10 Amylase Ordered. EDMS 12:10 Basic Metabolic Profile Ordered. EDMS 12:10 CBC with Diff Ordered. EDMS 12:10 Lipase Ordered. EDMS 12:10 Liver Profile Ordered. EDMS 12:10 CRP Ordered. EDMS 12:10 CT ABD & PELVIS: No Contrast: PT BREAST-FEEDING Ordered. EDMS 12:10 NOTHING BY MOUTH+DIET ordered. EDMS 12:10 DUPLEX SCAN LIMITED (DOPPLER)+US Ordered. EDMS 12:46 Transvaginal NON- US Ordered. EDMS 13:03 3D RECONS Ordered. EDMS 15:39 T-Sheet-- Draft Copy was scanned into [employer] and attached to record. klr 01 09:28 Radiology Report was scanned into [employer]cept[employer] and attached to record. Point of Care Testing: Urine : 07/19 12:57 hCG Reading: Negative; Control Reading: Positive; jo3 Ranges: Administered Medications: 12:22 Drug: NS 0.9% 1000 ml [sodium chloride 0.9 % intravenous solution] Route: IV; Rate: jo3 bolus; Site: right antecubital; 13:55 Follow up: IV Status: Completed infusion; IV Intake: 1000ml kr3 12:22 Drug: ketorolac 15 mg [ketorolac 30 mg/mL (1 mL) injection solution (0.5 mL)] Route: jo3 IVP; Site: right antecubital; 13:55 Follow up: Pain 08/22 Adult kr3 Signatures: Dispatcher [employer] EDMS Nicki Sheffield, Farzana Bah RN RN kr3 Brenda Alexandra RN RN [email or web address] Jenna Carbone, ISABEL PA-C dt4 Maureen Mascorro klr Jenna Guillermo dm19 [place], Brenda RN jo3 The chart was reviewed and I authenticate all verbal orders and agree with the evaluation and treatment provided.Attachments: 12:09 [facility] Payment Agreement dm19 15:39 T-Sheet-- Draft Copy klr Chart Complete MTDD
== END 2016-07-19 13:56 | disposition home or self-care (01) ==
LOC: M ED 11:25
DX: R10.31 Right lower quadrant pain (principal); Z97.5 Presence of (intrauterine) contraceptive device; F17.200 Nicotine dependence, unspecified, uncomplicated
CPT/HCPCS: 36415; 74176; 76376; 76830; 76856; 80048; 80076; 81001; 81025; 82150; 83690; 85025; 86140; 87086; 93976; 96361; 96374; 99284; J1885

== ENCOUNTER 2016-12-20 23:18 | Emergency (ER) | payer OTHER ==
[~2016-12-20] VITALS: Ht 157.5 cm; Wt 52.2 kg
[2016-12-21 05:02] VITALS: BP 115/64
== END 2016-12-21 05:08 | disposition home or self-care (01) ==
LOC: M ED 12-21 01:10
DX: O92.12 Cracked nipple associated with the puerperium (principal)